=== PATIENT | female | born 1955 | race Hispanic/Latino ===

== ENCOUNTER → 2024-07-30 | Outpatient (REF) | payer MEDICARE, OTHER ==
[~2024-07-30] MED LIST: ATORVASTATIN CA20 MG PO; DIATRIZOATE MEGL/DIATRIZOA SOD 30 ML BTL PO ONE; GABAPENTIN300 MG PO; GLIPIZIDE-METF1 EAC2 PO; IOPAMIDOL 370 MG/ML 100 ML INFUS..BTL INJ ONE; LANTUS 3ML100 UNITS/ SQ; LISINOPRIL10 MG PO; NAPROXEN250 MG PO; OXYBUTYNIN CHLOR5 MG PO
[2024-07-30 11:13] LABS: CREATININE, SERUM 0.89 mg/dL (0.57-1.11)
== END ==
LOC: CT 10:31
PROVIDERS: ATTEND Nurse Practitioner Family
DX: R10.9 Unspecified abdominal pain (principal)
CPT/HCPCS: 36415; 74177; 82565; 84520; Q9963; Q9967

== ENCOUNTER → 2025-03-02 | Outpatient (REF) | payer MEDICARE, OTHER ==
[~2025-03-02] MED LIST changes: -DIATRIZOATE MEGL/DIATRIZOA SOD 30 ML BTL PO ONE; -IOPAMIDOL 370 MG/ML 100 ML INFUS..BTL INJ ONE
== END ==
LOC: DX 08:43
PROVIDERS: ATTEND Nurse Practitioner Family
DX: R13.10 Dysphagia, unspecified (principal)
CPT/HCPCS: 74220